=== PATIENT | female | born 1965 | race Caucasian/White ===

== ENCOUNTER → 2017-01-01 | Outpatient (CLI) | payer OTHER ==
[~2017-01-01] MED LIST: ASMANEX TW200 MICROG IH; BUPROPION XL300 MG PO; CRESTOR10 MG PO; DAILY VALUE1 EACH PO; DULOXETINE HCL60 MG PO; FLUTICASONE PRO16 GM BOTH NARES; LANSOPRAZOLE30 MG PO; MONTELUKAST SOD10 MG PO; PREMARIN0.625 MG PO
== END | disposition home or self-care (01) ==
LOC: CDC 15:22
DX: R94.31 Abnormal electrocardiogram [ECG] [EKG] (principal)
CPT/HCPCS: 93000

== ENCOUNTER 2017-01-13 23:26 | Emergency (ER) | payer OTHER ==
[~2017-01-13] VITALS: Ht 170.2 cm; Wt 100.0 kg
[2017-01-14 00:28] VITALS: BP 147/81
== END 2017-01-14 00:29 | disposition home or self-care (01) ==
LOC: EME 23:26
DX: H57.11 Ocular pain, right eye (principal); Z97.3 Presence of spectacles and contact lenses
CPT/HCPCS: 99281; 99283